=== PATIENT | female | born 1990 | race Asian ===

== ENCOUNTER → 2021-10-22 | Outpatient (CLI) | payer OTHER ==
[2021-10-23 03:06] LABS: RUBEOLA (MEASLES) IGG >300.0 AU/mL (Immune >16.4)
== END | disposition home or self-care (01) ==
LOC: LABMN 09:01
PROVIDERS: ATTEND Internal Medicine
DX: Z02.1 Encounter for pre-employment examination (principal)
CPT/HCPCS: 86706; 86735; 86762; 86765; 86787

== ENCOUNTER 2022-01-25 16:29 | Emergency (ER) | payer OTHER ==
[~2022-01-25] VITALS: Ht 157.5 cm; Wt 82.0 kg
[2022-01-25 16:42] VITALS: BP 133/89
[2022-01-25 16:48] LABS: COVID AG,FIA SOURCE NASOPHARYNGEAL
== END 2022-01-25 18:19 | disposition home or self-care (01) ==
LOC: EMS 16:29
DX: R09.81 Nasal congestion (principal); R05.9 Cough, unspecified; R43.2 Parageusia; Z20.822 Contact with and (suspected) exposure to COVID-19
CPT/HCPCS: 87426; 99283; C9803; U0003